=== PATIENT | male | born 1950 ===

== ENCOUNTER 2024-08-05 14:11 | Outpatient (AMB) | payer MEDICARE, SELFPAY ==
--- NOTE | 2024-08-05 14:30 | A.OFFVIS_ITS ---
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 Pt has new right foot wounds w/ redness. 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 He actually is here requesting a 2nd opinion regarding an angiogram. He has a history of hypertension hyperlipidemia diabetes coronary artery disease. He also is a current smoker and smokes a proximally a half a pack per day. He has had extensive workup done at [facility] vascular. It appears he had some sort of fem distal bypass performed on his left lower extremity several years prior by Dr. Mendez. In addition he has a in the event of acute limb ischemia dating to 07/06/2016 where he underwent common iliac thrombectomy angioplasty of the left common iliac artery and external iliac artery with posterior tibial angioplasty. He appears to be doing relatively reasonably since that time until the last several months. He has been routinely surveilled and appears to change surgeons to Dr. Scruggs it is now. He last presented to [facility] on 06/02/2024. At that time he had noninvasive testing he was noted to have elevated velocities in his left leg bypass graft. At that time intervention was suggested but he had refused. He was quite confused about the overall situation. He was frustrated and he left and he was scheduled for a three-month surveillance with them. Of note in the interim his right leg has progressively declined. It actually has progress to critical limb ischemia where he has developed ulcers on the dorsum of the foot. It has become quite concerning for him. He was sent over for for a 2nd opinion and to better explain his overall situation. [facility] [place] Social History (Updated 08/05/24 @ 14:35 by GAETANO Gomez) Patient Tobacco Use Status: Former Tobacco user Review of Systems Const All systems reviewed & are unremarkable except as noted in HPI and below Reports no additional complaints ENT Reports Normal hearing present Card Denies chest pain, Denies chest pain at rest, Denies chest pain with activity and Denies pedal edema Resp Denies cough GI Denies abdominal pain Musc Denies abnormal gait, Denies muscle cramps and Denies radiating pain into limb Skin/Breast Denies skin ulcer and Denies wounds Neuro Reports Normal hearing present and Denies abnormal gait Psych Reports no additional complaints Physical Exam Const General: cooperative, healthy appearing and comfortable Orientation/consciousness: oriented to person, oriented to place and oriented to time HEENT Head: Yes normal to inspection Neck Neck: Yes normal visual inspection Carotids: no bruits Chest Chest palpation & inspection: normal inspection of the chest Resp Effort & Inspection: normal respiratory effort and able to speak in complete sentences Auscultation: clear to auscultation bilaterally, no crackles, no rales, no rhonchi and no wheezes Cardio Other: Bilateral DP signals, motor and sensation intact. Rate: regular rate Rhythm: regular rhythm Heart sounds: S1 normal heart sound present and S2 normal heart sound present Bruits: no carotid bruits GI Inspection: Yes normal to inspection Skin Other: Right dorsum of the foot 3 ulcers with overlying erythema. Wounds: no wounds Hair: normal Neuro General: oriented to person, oriented to place and oriented to time Cranial nerves: Yes CN's II-XII intact bilaterally and Yes Normal hearing pre sent Cognition (Neuro): normal cognition Motor exam (neuro): 5/5 motor strength present throughout Extrem Other: venous exam: No significant superficial varicosities or spider telangiectasias, minimal edema General: No clubbing, No cyanosis and No edema Psych Appearance: grossly normal Mental Status: mental status grossly normal Speech and movement: Normal speech and movement present Results Reviewed Results Reviewed: Written report noninvasive arterial testing performed on 02/29/2024 demonstrates that the left bypass graft appears to be patent high-grade stenosis at the proximal anastomosis of nearly 75%. In addition we 4 5 and on the left of 0.73. Assessment & Plan Assessment & Plan (1) PAD (peripheral artery disease): Code(s): I73.9 - Peripheral vascular disease, unspecified Category: Medical Plan: In our detailed discussion, I explained the findings of previous evaluations in dicating bypass patency but with present concerns over specific areas of narrowing. In addition I am extremely concerned about his right lower extremity as it has progress to critical limb ischemia. The recommendation for an angiogram was highlighted as a necessary step for further clarity on his vascular status and to inform any subsequent treatment plan. The risks and benefits of the angiogram were discussed, noting the importance of understanding the narrowing's extent to tailor potential interventions accurately. Consent was implied in the advocacy for continued care at a facility familiar with his historical interventions. It was advised to avoid delays that might lead to worsening of his leg symptoms. Assurance was given about providing necessary documentation and communication with colleagues who are better prepared to assist given the patient's history with them. Although he was frustrated he did demonstrated understanding of this overall situation. He will follow up with Lisbeth myrick in follow-up with us on an as-needed basis. Thank you for allowing us to assist in his care. If there are any questions or concerns please do not hesitate to contact us. Coding Level of Care Code New Pt Level 4 (93913) Diagnoses PAD (peripheral artery disease) I73.9
== END 2024-08-06 08:41 | disposition home or self-care (01) ==
PROVIDERS: PCP Internal Medicine; Visit Provider Surgery Vascular Surgery
DX: I73.9 Peripheral vascular disease, unspecified (principal)
CPT/HCPCS: 99204

== ENCOUNTER → 2024-08-05 14:11 | Outpatient (BNVA) | payer MEDICARE, OTHER, SELFPAY | PROVIDERS: PCP Internal Medicine; Visit Provider Surgery Vascular Surgery | DX: I73.9 Peripheral vascular disease, unspecified (principal) | CPT/HCPCS: 99202 ==